=== PATIENT | female | born 1945 | race Caucasian/White ===

== ENCOUNTER 2016-03-02 12:24 | Day surgery (SDC) | payer MEDICARE ==
[~2016-03-02 12:24] MED LIST: ACETAMINOPHEN 325 MG TABLET PO PRN; ACETYLCHOLINE CHLORIDE 20 DROP KIT IO PRN; BUPIVACAINE HCL/PF 30 ML VIAL IJ PRN; CYCLOPENTOLATE HCL 20 DROP BTL LEFTEYE PRN; DEXTROSE 5%-0.5 NORMAL SALINE 1,000 ML IV PRN; EPINEPHrine 1 MG/ML AMPUL IO PRN; HYALURONATE SODIUM 0.4 ML DISP.SYRIN IO PRN; HYALURONATE SODIUM 0.85 ML DISP.SYRIN IO PRN; LIDOCAINE HCL/PF 200 MG/5 ML AMPUL TP PRN; LIDOCAINE HCL/PF 5 ML VIAL IO PRN; NORMAL SALINE 3 ML BOX IV PRN; TETRACAINE HCL 150 DROP BTL OP PRN
[2016-03-02] MEDS: PHENYLEPHRINE HCL 50 DROP BTL LEFTEYE PRN ×3 (12:45→13:15)
[2016-03-02] MEDS: TROPICAMIDE 150 DROP BTL LEFTEYE PRN ×3 (12:45→13:15)
[2016-03-02 15:15] VITALS: BP 128/72
== END 2016-03-02 12:25 | disposition home or self-care (01) ==
LOC: AMB 12:24
PROVIDERS: ATTEND Ophthalmology
PROC: 08RK3JZ Replacement of Left Lens with Synthetic Substitute, Percutaneous Approach (ICD-10-PCS; principal; 2016-03-02 13:20)
DX: H26.9 Unspecified cataract (principal); Z68.26 Body mass index [BMI] 26.0-26.9, adult

== ENCOUNTER 2016-03-16 09:38 | Day surgery (SDC) | payer MEDICARE ==
[~2016-03-16 09:38] MED LIST changes: -CYCLOPENTOLATE HCL 20 DROP BTL LEFTEYE PRN; +CYCLOPENTOLATE HCL 20 DROP BTL RIGHTEYE PRN
[2016-03-16] MEDS: TROPICAMIDE 150 DROP BTL RIGHTEYE PRN ×3 (09:57→10:28)
[2016-03-16] MEDS: PHENYLEPHRINE HCL 50 DROP BTL RIGHTEYE PRN ×3 (09:57→10:28)
[2016-03-16] MEDS ORDERED: DEXTROSE 5%-0.5 NORMAL SALINE 1,000 ML IV ONE (10:38)
[2016-03-16 12:26] VITALS: BP 95/56
== END 2016-03-16 09:39 | disposition home or self-care (01) ==
LOC: AMB 09:38
PROVIDERS: ATTEND Ophthalmology
PROC: 08RJ3JZ Replacement of Right Lens with Synthetic Substitute, Percutaneous Approach (ICD-10-PCS; principal; 2016-03-16 10:40)
DX: H26.9 Unspecified cataract (principal); I10 Essential (primary) hypertension; E78.5 Hyperlipidemia, unspecified; I25.10 Atherosclerotic heart disease of native coronary artery without angina pectoris; F17.210 Nicotine dependence, cigarettes, uncomplicated; Z68.23 Body mass index [BMI] 23.0-23.9, adult

== ENCOUNTER 2017-04-25 14:50 | Inpatient (IN) | payer MEDICARE ==
[2017-04-25] MEDS ORDERED: NORMAL SALINE 1,000 ML IV ONE (15:08)
--- NOTE | 2017-04-25 15:16 | ERNOTE ---
Time Seen by Provider: 04/25/17 14:52 Stated Complaint: URI Presenting Symptoms:: cough Source: patient Exam Limitations: no limitations Immunizations: IMMUNIZATION HX Immunizations Up to Date Yes History of Influenza Vaccine No Hx Pneumococcal Vaccination No Allergies/Adverse Reactions: Allergies No Known Allergies Allergy (Verified 04/25/17 14:59) Home Medications: HOME MEDICATIONS Cyanocobalamin (Vitamin B-12) [B-12 Kit] 1,000 mcg IJ Q30D 02/28/16 [Last Taken 03/01/16] Lisinopril [Zestril] 20 mg PO DAILY 02/28/16 [Last Taken 03/16/16 08:00] Metoprolol Tartrate [Lopressor] 25 mg PO DAILY 02/28/16 [Last Taken 03/16/16 08: 00] Zolpidem Tartrate [Ambien] 10 mg PO HS 02/28/16 [Last Taken 03/01/16] busPIRone HCL [Buspar] 5 mg PO BID 02/28/16 [Last Taken 03/01/16] Aspirin 325 mg PO DAILY 03/02/16 [Last Taken 03/01/16] Diphenoxylate HCl/Atropine [Lomotil Tablet] 1 each PO QID #30 tablet 04/22/17 [ Last Taken Unknown] Doxycycline Hyclate [Vibratab] 100 mg PO BID #20 tab 04/22/17 [Last Taken Unknown] - History of Present Ilness Narrative: Patient states that she has been sick for 4-5days, cough, also vomiting and diarrhea. She denies any chest pain or abdominal pain. She was seen in the ER three days ago, diagnosed with influenza, started on doxycycline. She is not feeling any better, feels very weak, has not eaten much food, drinking soda, no water Timing: getting worse Review of Systems - Review of Systems Constitutional: Present: weakness, malaise. Absent: fever, chills EYE: Absent: double vision ENT: Absent: ear pain, nose congestion, sore throat Respiratory: Present: shortness of breath - with exertion, cough Cardiology: Absent: chest pain Gastrointestinal/Abdominal: Present: nausea, vomiting, diarrhea. Absent: abdominal pain Genitourinary: Present: no symptoms reported. Absent: frequency, dysuria Musculoskeletal: Absent: back pain Skin: Absent: rash Neurological: Absent: weakness, numbness - Patient's Past Medical History Patient History - Medical: Anemia, Cataracts Patient History - Cardiac/Respiratory: Hypertension, Hyperlipidemia Patient History - Cancer: No Hx of Cancer Patient History - Surgical Procedures: Cataracts, Cholecystectomy, Colon Resection - for obstruction, Cardiac stent, Hysterectomy, Other Patient History - Other: None - Family History Father Family History - Medical: , No pertinent hx Family History - Cardiac/Respiratory: No pertinent hx Family History - Cancer: Throat Mother Family History - Medical: , No pertinent hx Family History - Cardiac/Respiratory: CVA/Stroke Family History - Cancer: No pertinent family hx - Social History Living Situations: home Abuse History: No History of abuse Psych History: No pertinent hx Alcohol Use: none Drug Use: none - Immunizations Immunizations Up to Date: Yes Hx Pneumococcal Vaccination: No History of Influenza Vaccine: No Physical Exam - Physical Exam General Appearance: Present: wd/wn, alert, no apparent distress Head Exam: Present: normal inspection Eye Exam: Normal inspection: bilateral Ears, Nose, Throat: Present: normal ENT inspection, normal pharynx, dry mucous membranes Respiratory: Present: no respiratory distress, normal breath sounds, lungs clear Cardiovascular/Chest: Present: regular rate, rhythm, no murmur Gastrointestinal/Abdominal: Present: normal bowel sounds, nontender, nondistended, soft Extremity Exam: Present: no edema Neurological Exam: Present: alert, oriented, normal mood/affect Skin Exam: Present: normal color, warm/dry ED Progress - Results and Orders Patient's Lab Results:: I have reviewed the patient's lab results. - Vital Signs Patient's Vital Signs:: I have reviewed the patient's vital signs. Vital Signs: Vital Signs 04/25/17 14:50 Temperature 35.4 C L Pulse Rate 96 Respiratory 12 Rate Blood Pressure 86/44 O2 Sat by Pulse 97 Oximetry - X-Ray X-Ray #1 X-Ray: chest - possible left sided infiltrate Interpretation: Reviewed by me X-Ray #2 X-Ray: abdomen - non obstructive bowl gas pattern, possible air in bile sytem Interpretation: Discd w/ radiologist - Progress/Reassessment Chief Complaint: Upper Respiratory Symptoms Progress Note-Subjective: 04/25/17 16:15 discussed Xray with radiologist, if patient had ERCP or other biliary procedure air would be normal 04/25/17 16:40 discussed Xray results with patient and family, patient had cholecystectomy, later had 'liver stones' and had ERCP 04/25/17 16:47 discussed with yi Ponce to admit for pneumonia, dehydration and acute renal failure 04/25/17 16:56 patient has PSI or 110 (class IV) qualifying for inpatient care Departure Clinical Impression: Dehydration Pneumonia Qualifiers: Pneumonia type: due to unspecified organism Laterality: left Lung location: lower lobe of lung Qualified Code(s): J18.1 - Lobar pneumonia, unspecified organism Acute renal failure Qualifiers: Acute renal failure type: unspecified Qualified Code(s): N17.9 - Acute kidney failure, unspecified - Departure Disposition: Still a patient Condition: Stable
[2017-04-25 15:22] LABS: Hematocrit 38.5 % (37.0-47.0); Hemoglobin 13.4 gm/dL (12.5-16.0); Mean Cell Volume 88.7 fl (78-100); Mean Corpuscular Hemoglobin 30.9 pg (27-31); Mean Corpuscular Hgb Conc 34.8 g/dl (32-36); Mean Platelet Volume 9.2 fl (6.0-9.5); Neutrophil # 10.4 K/mm3 (1.3-6.0); Neutrophil % 79.8 % (42-75.0); Platelet Count 391 K/mm3 (150-450); Red Blood Count 4.34 M/mm3 (4.2-5.4); Red Cell Distribution Width 13.7 % (11.5-14.0)
[2017-04-25 15:43] LABS: Albumin * 3.5 gm/dl (3.4-5.0); Anion Gap 26.9 mmol/L (6.8-13.8); BUN/Creatinine Ratio 15.5 (9.0-21.6); Bilirubin, Total 0.3 mg/dL (0.0-1.1); Ca. Corrected For Albumin 9.2 mg/dL (8.4-10.2); Calcium * 9.1 mg/dL (7.9-10.9); Carbon Dioxide 10.7 mmol/L (24-32.6); Potassium 4.6 mmol/L (3.4-4.6); Total Protein 8.9 gm/dL (6.2-8.2)
[2017-04-25] MEDS ORDERED: NORMAL SALINE 1,000 ML IV PRN (15:44)
[2017-04-25 16:11] LABS: Urine Appearance Slightly Cloudy (CLEAR); Urine Bilirubin Negative (NEGATIVE); Urine Blood Negative /ul (NEGATIVE); Urine Color Yellow; Urine Ketone Negative (NEGATIVE)
[2017-04-25 16:12] LABS: Urine Bacteria 1+; Urine Nitrite Negative (NEGATIVE); Urine Protein 15 mg/dL (NEGATIVE); Urine Urobilinogen Normal (NORMAL); Urine WBC 0-5 /hpf (0-5); Urine pH 5.5 pH (5.0-7.0)
[2017-04-25 16:13] LABS: Urine RBC None Seen /hpf (0-5); Urine Sperm Moderate - 2+
[2017-04-25] MEDS ORDERED: AZITHROMYCIN 250 MG TABLET PO STA (17:09)
[2017-04-25] MEDS ORDERED: ACETAMINOPHEN 325 MG TABLET PO PRN (17:09)
[2017-04-25] MEDS ORDERED: AZITHROMYCIN 250 MG TABLET ONE (17:23)
--- NOTE | 2017-04-25 17:38 | HP ---
Chief Complaint - Chief Complaint Date of Service: 04/25/17 Time of Service: 17:15 Chief Complaint: Weakness, dry mouth, oliguria, History of Present Illness: Asad has become progressively weaker over the past several days. Not been urinating very much at all. Her mouth is very dry. She is lightheaded and weak and can't walk very far. - Patient's Past Medical History Patient History - Medical: Anemia, Cataracts Patient History - Cardiac/Respiratory: Hypertension, Hyperlipidemia Patient History - Cancer: No Hx of Cancer Patient History - Surgical Procedures: Cataracts, Cholecystectomy, Colon Resection - for obstruction, Cardiac stent, Hysterectomy, Other Patient History - Other: None - Family History Father Family History - Medical: , No pertinent hx Family History - Cardiac/Respiratory: No pertinent hx Family History - Cancer: Throat Mother Family History - Medical: , No pertinent hx Family History - Cardiac/Respiratory: CVA/Stroke Family History - Cancer: No pertinent family hx - Social History Living Situations: home Abuse History: No History of abuse Psych History: No pertinent hx Alcohol Use: none Drug Use: none - Immunizations Immunizations Up to Date: Yes Hx Pneumococcal Vaccination: No History of Influenza Vaccine: No Review Of Systems (GEN) - Review of Systems Generalized/Overall Review: Present: Weakness, Weight loss EENTM: Present: No Symptoms Reported, Other - Very dry mouth Respiratory: Present: Cough, Shortness of Breath Cardiac: Present: Other - History of hypertension Abdominal: Present: No Symptoms Reported Genitourinary: Present: Oliguria Musculoskeletal: Present: Other - Generalized muscle weakness Neurological: Present: Weakness Skin: Present: Dryness, Change in Color Endocrine: Present: No Symptoms Reported Additional Comments: Suri Gaitan is a 72-year-old female patient who is very weak. She is alert oriented and conversant however. She denies being in pain or having any nausea. She is just very weak. She recently underwent ERCP to have some stones removed from her common bile duct or hepatic duct. This procedure seems to have been successful. She has a left subclavian stent in place. Allergies/Adverse Reactions: Allergies Allergy/AdvReac Type Severity Reaction Status Date / Time No Known Allergies Allergy Verified 04/25/17 14:59 Home Medications: HOME MEDICATIONS Cyanocobalamin (Vitamin B-12) [B-12 Kit] 1,000 mcg IJ Q30D 02/28/16 [Last Taken 03/01/16] Lisinopril [Zestril] 20 mg PO DAILY 02/28/16 [Last Taken 03/16/16 08:00] Metoprolol Tartrate [Lopressor] 25 mg PO DAILY 02/28/16 [Last Taken 03/16/16 08: 00] Zolpidem Tartrate [Ambien] 10 mg PO HS 02/28/16 [Last Taken 03/01/16] busPIRone HCL [Buspar] 5 mg PO BID 02/28/16 [Last Taken 03/01/16] Aspirin 325 mg PO DAILY 03/02/16 [Last Taken 03/01/16] Diphenoxylate HCl/Atropine [Lomotil Tablet] 1 each PO QID #30 tablet 04/22/17 [ Last Taken Unknown] Doxycycline Hyclate [Vibratab] 100 mg PO BID #20 tab 04/22/17 [Last Taken Unknown] Exam - Exam Vital Signs: Vital Signs - Last Taken Temp 36.1 C L 04/25/17 16:53 Pulse 91 04/25/17 16:53 Resp 13 04/25/17 16:53 BP 85/42 04/25/17 16:53 Pulse Ox 96 04/25/17 16:53 Constitutional: Present: Alert, Oriented x3, Cooperative, Well developed, Elderly, Thin and frail ENT Exam: Present: normal ENT inspection, hearing grossly normal Eye Exam: bilateral eye: normal inspection, PERRL, EOMI Neck: Present: non-tender, supple, normal inspection, trachea midline Back Exam: Present: normal inspection, no CVA tenderness, no vertebral tenderness Breasts: Present: Exam deferred Respiratory: Present: chest non-tender, rhonchi, wheezing, expiration (prolonged ), No rales Cardiovascular/Chest: Present: normal peripheral pulses, regular rate, rhythm, no chest tenderness, no edema, no gallop, no JVD, no murmur Peripheral Pulses: carotid (R): 2+, carotid (L): 2+, radial (R): 2+, radial (L) : 2+ Abdomen: Present: Normal bowel sounds, soft, nontender, nondistended, no rebound tenderness, no hepatospenomegaly /Rectal: Present: Exam deferred Extremity: Present: normal range of motion, non-tender, normal inspection, no pedal edema, no calf tenderness Skin Exam: Present: cool/dry, pallor Lymphatic: Present: no adenopathy 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 Appearance: Present: appropriate appearance, appropriate insight, neat, no memory impairment Eye contact: Present: cooperative, good eye contact, normal speech Thoughts: Present: normal thought pattern, no apparent hallucination Diagnostic Studies: Laboratory Results WBC 13.0 K/mm3 (4.0-10.5) H 04/25/17 15:10 RBC 4.34 M/mm3 (4.2-5.4) 04/25/17 15:10 Hgb 13.4 gm/dL (12.5-16.0) 04/25/17 15:10 Hct 38.5 % (37.0-47.0) 04/25/17 15:10 MCV 88.7 fl (78-100) 04/25/17 15:10 MCH 30.9 pg (27-31) 04/25/17 15:10 MCHC 34.8 g/dl (32-36) 04/25/17 15:10 RDW 13.7 % (11.5-14.0) 04/25/17 15:10 Plt Count 391 K/mm3 (150-450) 04/25/17 15:10 MPV 9.2 fl (6.0-9.5) 04/25/17 15:10 Immature Gran % (Auto) 2.00 % (0.001-0.429) H 04/25/17 15:10 Immature Gran # (Auto) 0.26 K/mm3 (0.000-0.0310) H 04/25/17 15:10 Neutrophils % 79.8 % (42-75.0) H 04/25/17 15:10 Lymphocytes % 11.7 % (20-51) L 04/25/17 15:10 Monocytes % 5.8 % (0.0-9) 04/25/17 15:10 Eosinophils % 0.2 % (0.0-3.0) 04/25/17 15:10 Basophils % 0.5 % (0.0-1.0) 04/25/17 15:10 Nucleated RBC % 0.0 k/mm3 (0-1) 04/25/17 15:10 Neutrophils # 10.4 K/mm3 (1.3-6.0) H 04/25/17 15:10 Lymphocytes # 1.52 k/mm3 (1.5-3.5) 04/25/17 15:10 Monocytes # 0.8 k/mm3 (0.0-1.0) 04/25/17 15:10 Eosinophils # 0.0 k/mm3 (0.0-0.7) 04/25/17 15:10 Absolute Basophils 0.1 k/mm3 (0.0-0.1) 04/25/17 15:10 Sodium 137 mmol/L (132-142) 04/25/17 15:10 Plasma Sodium 138 mmol/L (130-142) 04/25/17 15:10 Potassium 4.6 mmol/L (3.4-4.6) D 04/25/17 15:10 Chloride 104 mmol/L (97-106) 04/25/17 15:10 Carbon Dioxide 10.7 mmol/L (24-32.6) L 04/25/17 15:10 Anion Gap 26.9 mmol/L (6.8-13.8) H 04/25/17 15:10 BUN 113 mg/dL (3-23) H D 04/25/17 15:10 Creatinine 7.27 mg/dL (0.4-1.4) H D 04/25/17 15:10 Est GFR (Non-Af Amer) 6 mL/min (60-130) L D 04/25/17 15:10 BUN/Creatinine Ratio 15.5 (9.0-21.6) 04/25/17 15:10 Random Glucose 133 mg/dL (70-110) H 04/25/17 15:10 Lactic Acid, Venous 2.0 mmol/L (0.4-1.9) H 04/25/17 15:10 Calcium 9.1 mg/dL (7.9-10.9) 04/25/17 15:10 Calcium Adj for Albumin 9.2 mg/dL (8.4-10.2) 04/25/17 15:10 Total Bilirubin 0.3 mg/dL (0.0-1.1) 04/25/17 15:10 AST 13 U/L (0-48) 04/25/17 15:10 ALT 15 U/L (19-67) L 04/25/17 15:10 Alkaline Phosphatase 105 U/L (50-170) 04/25/17 15:10 Total Protein 8.9 gm/dL (6.2-8.2) H 04/25/17 15:10 Albumin 3.5 gm/dl (3.4-5.0) 04/25/17 15:10 Urine Color Yellow 04/25/17 15:44 Urine Appearance Slightly cloudy (CLEAR) 04/25/17 15:44 Urine pH 5.5 pH (5.0-7.0) 04/25/17 15:44 Ur Specific [place] 1.030 SP.GR. (1.005-1.010) 04/25/17 15:44 Urine Protein 15 mg/dL (NEGATIVE) H 04/25/17 15:44 Urine Glucose (UA) Negative mg/dL (NEGATIVE) 04/25/17 15:44 Urine Ketones Negative mg/dL (NEGATIVE) 04/25/17 15:44 Urine Blood Negative /ul (NEGATIVE) 04/25/17 15:44 Urine Nitrate Negative (NEGATIVE) 04/25/17 15:44 Urine Bilirubin Negative mg/dl (NEGATIVE) 04/25/17 15:44 Prot Sulfosalicylic Acd 1+ mg/dL (0) 04/25/17 15:44 Urine Urobilinogen Normal EU/dl (NORMAL) 04/25/17 15:44 Ur Leukocyte Esterase Negative /ul (NEGATIVE) 04/25/17 15:44 Urine RBC None seen /hpf (0-5) 04/25/17 15:44 Urine WBC 0-5 /hpf (0-5) 04/25/17 15:44 Ur Epithelial Cells 5-10 /hpf (0-5) H 04/25/17 15:44 Urine Bacteria 1+ (NONE) H 04/25/17 15:44 Urine Sperm Moderate - 2+ (NONE) H 04/25/17 15:44 Urine Culture Comments No culture indicated 04/25/17 15:44 Assessment/Plan - Narrative Narrative: IV fluids using normal saline will be administered at a bolus rate until the 1680 mL for the sepsis protocol is administered. The rate will be decreased to 125 mL per hour. I'll monitor her renal status at least daily and perhaps twice a day at times until she is rehydrated. I would estimate that she is 4-6 L of fluid behind. I will hold her medications including her blood pressure medicines of aspirin. She may have some acetaminophen if needed and I'll her sleeping pill and her anxiety medication as they are metabolized through the liver. I anticipate her kidneys will recover significantly although may not too normal range. - Assessment/Plan (1) Acute renal failure Problem: Acute Qualifiers: Acute renal failure type: unspecified Qualified Code(s): N17.9 - Acute kidney failure, unspecified (2) Dehydration Problem: Acute (3) Hypotension Problem: Acute Qualifiers: Hypotension type: other hypotension type Qualified Code(s): I95.89 - Other hypotension (4) Pneumonia Problem: Acute Qualifiers: Pneumonia type: due to unspecified organism Laterality: left Lung location: lower lobe of lung Qualified Code(s): J18.1 - Lobar pneumonia, unspecified organism
[2017-04-25] MEDS: NORMAL SALINE 1,000 ML IV PRN (18:57)
[2017-04-25] MEDS: ZOLPIDEM TARTRATE 10 MG TABLET PO SCH (21:51)
[2017-04-25] MEDS: busPIRone HCL 5 MG TABLET PO SCH (21:51)
[2017-04-26] MEDS: NORMAL SALINE 1,000 ML IV PRN ×3 (03:19→21:53)
[2017-04-26 05:27] LABS: Hematocrit 32.6 % (37.0-47.0); Hemoglobin 11.2 gm/dL (12.5-16.0); Mean Cell Volume 89.1 fl (78-100); Mean Corpuscular Hemoglobin 30.6 pg (27-31); Mean Corpuscular Hgb Conc 34.4 g/dl (32-36); Neutrophil # 7.1 K/mm3 (1.3-6.0); Neutrophil % 76.4 % (42-75.0); Platelet Count 313 K/mm3 (150-450); Red Blood Count 3.66 M/mm3 (4.2-5.4); Red Cell Distribution Width 13.6 % (11.5-14.0); White Blood Count 9.2 K/mm3 (4.0-10.5)
[2017-04-26 05:37] LABS: Anion Gap 21.6 mmol/L (6.8-13.8); BUN/Creatinine Ratio 21.9 (9.0-21.6); Calcium * 8.3 mg/dL (7.9-10.9); Carbon Dioxide 10.9 mmol/L (24-32.6); Estimated Creat Clear 11.6; Potassium 4.5 mmol/L (3.4-4.6)
[2017-04-26] MEDS: ENOXAPARIN SODIUM 30 MG/0.3 ML SYRG SC SCH (09:46)
[2017-04-26] MEDS: AZITHROMYCIN 250 MG TABLET PO SCH (09:46)
[2017-04-26] MEDS: busPIRone HCL 5 MG TABLET PO SCH ×2 (09:46→23:30)
[2017-04-26] MEDS: cefTRIAXone SODIUM 1,000 MG in DEXTROSE 5 % IN WATER 50 ML IV SCH ×2 (16:50)
[2017-04-26] MEDS ORDERED: OLANZapine 5 MG TABLET PO STA (16:53)
[2017-04-26] MEDS ORDERED: HALOPERIDOL LACTATE 5 MG/ML VIAL IM PRN (18:08)
[2017-04-26] MEDS ORDERED: LORazepam 2 MG/ML DISP.SYRIN IV ONE (18:09)
[2017-04-26] MEDS ORDERED: LORazepam 2 MG/ML DISP.SYRIN ONE (19:17)
[2017-04-27 05:08] LABS: Anion Gap 19.3 mmol/L (6.8-13.8); BUN/Creatinine Ratio 26.7 (9.0-21.6); Calcium * 8.1 mg/dL (7.9-10.9); Carbon Dioxide 12.1 mmol/L (24-32.6); Estimated Creat Clear 19.1; Potassium 4.4 mmol/L (3.4-4.6)
[2017-04-27] MEDS: NORMAL SALINE 1,000 ML IV PRN (06:42)
--- NOTE | 2017-04-27 09:01 | PN ---
Subjective - Date and Time Seen Date: 04/26/17 Time: 08:00 Objective - Review of Systems Generalized/Overall Review: Reports: No Symptoms Reported, Weakness, Weight loss EENTM: Reports: No Symptoms Reported Respiratory: Reports: No Symptoms Reported Cardiac: Reports: No Symptoms Reported Abdominal: Reports: No Symptoms Reported Genitourinary Symptoms: Reports: No Symptoms Reported Musculoskeletal Complaints: Reports: No Symptoms Reported Neurological: Reports: No Symptoms Reported Skin: Reports: No Symptoms Reported Endocrine: Reports: No Symptoms Reported - Vitals Vitals: Last Vital Signs Temp 36.8 C 04/27/17 07:32 Pulse 95 04/27/17 07:32 Resp 16 04/27/17 07:32 BP 102/60 04/27/17 07:32 Pulse Ox 97 04/27/17 07:32 - Abnormal Lab Findings Abnormal Lab Findings: Abnormal Lab Results 04/27/17 Range/Units 04:53 Sodium 149 H (132-142) mmol/L Plasma Sodium 149 H (130-142) mmol/L Chloride 122 H (97-106) mmol/L Carbon Dioxide 12.1 L (24-32.6) mmol/L Anion Gap 19.3 H (6.8-13.8) mmol/L BUN 74 H (3-23) mg/dL Creatinine 2.77 H D (0.4-1.4) mg/dL Est GFR (Non-Af Amer) 18 L D (60-130) mL/min BUN/Creatinine Ratio 26.7 H (9.0-21.6) - Exam Exam Narrative: Interval improvement in her lab work shows a decrease of her creatinine down to 4 and her EGFR is up to 12. She seems to be tolerating rehydration well and no signs or symptoms of failure. 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 Recheck BUN/creatinine tomorrow morning. - Problems/Diagnosis (1) Acute renal failure Problem: Acute Qualifiers: Acute renal failure type: unspecified Qualified Code(s): N17.9 - Acute kidney failure, unspecified (2) Dehydration Problem: Acute (3) Hypotension Problem: Acute Qualifiers: Hypotension type: other hypotension type Qualified Code(s): I95.89 - Other hypotension (4) Pneumonia Problem: Acute Qualifiers: Pneumonia type: due to unspecified organism Laterality: left Lung location: lower lobe of lung Qualified Code(s): J18.1 - Lobar pneumonia, unspecified organism
--- NOTE | 2017-04-27 09:05 | PN ---
Guilherme Note - Interim Date: 04/26/17 Time: 19:15 Narrative: 04/27/17 09:02 Mrs. Gaitan has had an acute psychotic break this evening and become very confused and difficult to manage. She is disoriented to time date and place. She thinks some of the staff or relatives. She thinks her husbands put her in [facility]. She is cussing at staff. This is most likely just acute hospital psychosis. I gave her Zyprexa 5 mg by mouth about 2 hours ago at around 5:30 which had no benefit by 6:30 and so she was given Haldol 30 mg IM and 1 mg of lorazepam IV push. She is now calm and sitting in a chair and doesn't seem to be as confused and belligerent at this time. We will repeat a dose through the night as necessary
--- NOTE | 2017-04-27 09:15 | PN ---
Subjective - Date and Time Seen Date: 04/27/17 Time: 08:15 Subjective Narrative: Mrs. Gaitan is very quiet this morning. She looks sedated. She is in no distress at the time of my exam. She answers some questions appropriately. I reviewed her morning lab with her just stating that the patient improved and she did not acknowledge. There are no other new problems have arisen. Objective Objective Narrative: Vital signs have remained stable. Her pain is down to 2.8 this morning and EGFR is now up to 18. We do not know what her baseline is. She is not coughing does not seem to be any respiratory distress. There is concern for pneumonia on admission. Repeat chest x-ray will be done tomorrow prior to discharge. Sodium was up to 149 today so I will decrease her IV fluid to half normal saline. - Review of Systems Generalized/Overall Review: Reports: Weakness, Weight loss EENTM: Reports: No Symptoms Reported Respiratory: Reports: No Symptoms Reported Cardiac: Reports: No Symptoms Reported Abdominal: Reports: No Symptoms Reported Genitourinary Symptoms: Reports: No Symptoms Reported Musculoskeletal Complaints: Reports: No Symptoms Reported Neurological: Reports: No Symptoms Reported Skin: Reports: No Symptoms Reported Endocrine: Reports: No Symptoms Reported - Vitals Vitals: Last Vital Signs Temp 36.8 C 04/27/17 07:32 Pulse 95 04/27/17 07:32 Resp 16 04/27/17 07:32 BP 102/60 04/27/17 07:32 Pulse Ox 97 04/27/17 07:32 - Abnormal Lab Findings Abnormal Lab Findings: Abnormal Lab Results 04/27/17 Range/Units 04:53 Sodium 149 H (132-142) mmol/L Plasma Sodium 149 H (130-142) mmol/L Chloride 122 H (97-106) mmol/L Carbon Dioxide 12.1 L (24-32.6) mmol/L Anion Gap 19.3 H (6.8-13.8) mmol/L BUN 74 H (3-23) mg/dL Creatinine 2.77 H D (0.4-1.4) mg/dL Est GFR (Non-Af Amer) 18 L D (60-130) mL/min BUN/Creatinine Ratio 26.7 H (9.0-21.6) - Exam Constitutional: Present: No distress, Lethargic, Somnolent, Elderly, Thin and frail ENT Exam: Present: normal ENT inspection, hearing grossly normal, pharynx normal Neck: Present: non-tender, supple, limited range of motion Breasts: Present: Exam deferred Respiratory: Present: chest non-tender, lungs clear, normal breath sounds, no respiratory distress, no accessory muscle use Cardiovascular/Chest: Present: normal peripheral pulses, regular rate, rhythm, no chest tenderness Abdomen: Present: Normal bowel sounds /Rectal: Present: Exam deferred Extremity: Present: normal range of motion, non-tender, normal inspection, no pedal edema, no calf tenderness Skin Exam: Present: normal color, warm/dry, no cyanosis, cool/dry, diaphoresis Lymphatic: Present: no adenopathy Neurologic: Present: nurse rn bsn II-XII nml as tested Appearance: Present: appropriate appearance Eye contact: Present: cooperative Thoughts: Present: normal thought pattern, auditory hallucinations, delusions, incoherent, paranoid, persecution, visual hallucinations. Absent: normal mood / affect Assessment/Plan Plan Narrative: Change IV fluid to half normal saline at 100 mL per hour 2. Eat BMP tomorrow morning 3. Chest x-ray tomorrow morning 4. Continue antipsychotic and angiolytic medicine as required. - Problems/Diagnosis (1) Acute renal failure Problem: Acute Qualifiers: Acute renal failure type: unspecified Qualified Code(s): N17.9 - Acute kidney failure, unspecified (2) Dehydration Problem: Acute (3) Acute psychosis Problem: Acute (4) Hypernatremia Problem: Acute (5) Hypotension Problem: Acute Qualifiers: Hypotension type: other hypotension type Qualified Code(s): I95.89 - Other hypotension (6) Pneumonia Problem: Acute Qualifiers: Pneumonia type: due to unspecified organism Laterality: left Lung location: lower lobe of lung Qualified Code(s): J18.1 - Lobar pneumonia, unspecified organism
[2017-04-27] MEDS: AZITHROMYCIN 250 MG TABLET PO SCH (09:20)
[2017-04-27] MEDS: ENOXAPARIN SODIUM 30 MG/0.3 ML SYRG SC SCH (09:20)
[2017-04-27] MEDS: busPIRone HCL 5 MG TABLET PO SCH ×2 (09:20→23:00)
[2017-04-27] MEDS: ZOLPIDEM TARTRATE 10 MG TABLET PO SCH (09:51)
[2017-04-27] MEDS: 0.5 NORMAL SALINE 1,000 ML IV PRN ×2 (10:08→22:42)
[2017-04-27] MEDS: LORazepam 2 MG/ML DISP.SYRIN IV PRN (13:00)
[2017-04-27] MEDS: OLANZapine 5 MG TABLET PO SCH (15:52)
[2017-04-27] MEDS: cefTRIAXone SODIUM 1,000 MG in DEXTROSE 5 % IN WATER 50 ML IV SCH ×2 (15:55)
[2017-04-28] MEDS: LORazepam 2 MG/ML DISP.SYRIN IV PRN ×2 (00:59→21:13)
[2017-04-28 06:04] LABS: Anion Gap 20.4 mmol/L (6.8-13.8); BUN/Creatinine Ratio 24.8 (9.0-21.6); Calcium * 8.2 mg/dL (7.9-10.9); Carbon Dioxide 11.4 mmol/L (24-32.6); Estimated Creat Clear 25.6; Potassium 3.8 mmol/L (3.4-4.6)
[2017-04-28] MEDS: OLANZapine 5 MG TABLET PO SCH (09:00)
[2017-04-28] MEDS: busPIRone HCL 5 MG TABLET PO SCH ×2 (09:00→21:12)
[2017-04-28] MEDS: AZITHROMYCIN 250 MG TABLET PO SCH (09:00)
[2017-04-28] MEDS: ENOXAPARIN SODIUM 30 MG/0.3 ML SYRG SC SCH (09:01)
[2017-04-28] MEDS: 0.5 NORMAL SALINE 1,000 ML IV PRN (11:41)
[2017-04-28] MEDS ORDERED: POTASSIUM CHLORIDE 40 MEQ in DEXTROSE 5%-NORMAL SALINE 980 ML IV SCH (15:00)
[2017-04-28] MEDS ORDERED: POTASSIUM CHLORIDE 20 MEQ TABLET.SA PO ONE (15:00)
--- NOTE | 2017-04-28 15:26 | PN ---
Subjective - Date and Time Seen Date: 04/28/17 Time: 15:11 Subjective Narrative: patient confused, cannot recollect the reason she is in the hospital, poor appetite. Objective - Review of Systems Generalized/Overall Review: Denies: Weakness - poor appetite - Vitals Vitals: Vital Signs Temp 36.2 C L 04/28/17 10:23 Pulse 79 04/28/17 14:22 Resp 18 04/28/17 10:23 BP 122/69 04/28/17 10:23 Pulse Ox 98 04/28/17 10:23 - Abnormal Lab Findings Abnormal Lab Findings: Laboratory Tests 04/28/17 05:49 Plasma Sodium 146 H Potassium 3.8 Chloride 118 H Carbon Dioxide 11.4 L BUN 51 H Creatinine 2.06 H D Est GFR (Non-Af Amer) 25 L D Random Glucose 79 Calcium 8.2 - Exam Constitutional: Present: Elderly, Thin and frail - alert and not oriented, in NAD. ENT Exam: Present: hearing grossly normal, dry mucous membranes Respiratory: Present: no accessory muscle use, decreased breath sounds - at left base. Cardiovascular/Chest: Present: regular rate, rhythm. Absent: tachycardia Abdomen: Present: Normal bowel sounds, soft, nontender Extremity: Present: normal inspection, no pedal edema Skin Exam: Present: warm/dry, pallor Assessment/Plan Plan Narrative: 1. ACUTE ON CHRONIC KIDNEY DISEASE STAGE III. Patient BUN/creatinine had worsened from 14/1.69 GFR 32ml/min [02/20/17] to 113/ 7.27 GFR 6 ml/ min[ 04/25/17]. This is gradually improving with hydration. 2. HYPERNATREMIA DUE TO DEHYDRATION: D/C normal saline. Switch to D5W at 125 mL an hour. Check CMP in a.m. 3. METABOLIC ACIDOSIS: Start sodium bicarbonate PO 650 mg 4 times a day. 4. POOR ORAL INTAKE: Patient has a low BMI of 18.8. Start mirtazapine 7.5 mg by mouth at bedtime.
[2017-04-28] MEDS: cefTRIAXone SODIUM 1,000 MG in DEXTROSE 5 % IN WATER 50 ML IV SCH ×2 (15:57)
[2017-04-28] MEDS: DEXTROSE 5 % IN WATER 1,000 ML IV PRN (15:58)
[2017-04-28] MEDS: MIRTAZAPINE 15 MG TABLET PO SCH (19:10)
[2017-04-28] MEDS ORDERED: SODIUM BICARBONATE 650 MG TABLET PO ONE (20:00)
[2017-04-29] MEDS: DEXTROSE 5 % IN WATER 1,000 ML IV PRN (00:37)
[2017-04-29 06:01] LABS: Hematocrit 35.8 % (37.0-47.0); Hemoglobin 12.6 gm/dL (12.5-16.0); Mean Cell Volume 87.3 fl (78-100); Mean Corpuscular Hemoglobin 30.7 pg (27-31); Mean Corpuscular Hgb Conc 35.2 g/dl (32-36); Mean Platelet Volume 9.2 fl (6.0-9.5); Neutrophil # 8.2 K/mm3 (1.3-6.0); Neutrophil % 75.5 % (42-75.0); Platelet Count 277 K/mm3 (150-450); Red Cell Distribution Width 13.6 % (11.5-14.0); White Blood Count 10.9 K/mm3 (4.0-10.5)
[2017-04-29 06:32] LABS: Albumin * 2.8 gm/dl (3.4-5.0); Anion Gap 18.6 mmol/L (6.8-13.8); BUN/Creatinine Ratio 19.8 (9.0-21.6); Bilirubin, Total 0.4 mg/dL (0.0-1.1); Ca. Corrected For Albumin 8.8 mg/dL (8.4-10.2); Calcium * 8.2 mg/dL (7.9-10.9); Carbon Dioxide 10.8 mmol/L (24-32.6); Potassium 4.4 mmol/L (3.4-4.6); Total Protein 7.3 gm/dL (6.2-8.2)
[2017-04-29] MEDS: ENOXAPARIN SODIUM 30 MG/0.3 ML SYRG SC SCH (08:58)
[2017-04-29] MEDS: busPIRone HCL 5 MG TABLET PO SCH ×2 (08:59→21:32)
[2017-04-29] MEDS: AZITHROMYCIN 250 MG TABLET PO SCH (08:59)
[2017-04-29] MEDS: OLANZapine 5 MG TABLET PO SCH (08:59)
[2017-04-29] MEDS: SODIUM BICARBONATE 650 MG TABLET PO SCH ×5 (09:05→21:32)
[2017-04-29] MEDS ORDERED: NORMAL SALINE 500 ML IV ONE (12:10)
--- NOTE | 2017-04-29 12:33 | PN ---
Subjective - Date and Time Seen Date: 04/29/17 Time: 12:24 Subjective Narrative: Pt. had rapid response called. states that lunch had just arrived and she was looking at lunch tray and then her eyes rolled back and she went out. Nursing reports that she was leaning to the left. Stat CT of head was ordered. I assessed her in CT and she was able to respond to verbal questions. Manager Behavior and foot plantar flexion and dorsiflexion were 5/5 and equal jori. Speech was soft, but understandable. Head was tilted to left, but no facial droop on left. Earlier I spoke with who stated she has not been eating well and that he is concerned about her nutritional state and her confused state. She normally isn't confused per him and doesn't have a tremor, which she now has. Pt. can tell me that she's in [facility], but states year as 2011. Objective - Review of Systems Generalized/Overall Review: Reports: Weakness, Malaise. Denies: Chills, Fever EENTM: Reports: No Symptoms Reported Respiratory: Reports: No Symptoms Reported Cardiac: Reports: No Symptoms Reported Abdominal: Reports: Other - early satiety. Denies: Abdominal Pain, Diarrhea Genitourinary Symptoms: Reports: No Symptoms Reported Musculoskeletal Complaints: Reports: No Symptoms Reported Neurological: Reports: Anxiety, Tremors, Weakness, Other - hallucinations and wanting to leave the facility, by report Skin: Reports: No Symptoms Reported Endocrine: Reports: No Symptoms Reported - Vitals Vitals: Last Vital Signs Temp 36.3 C L 04/29/17 10:45 Pulse 89 04/29/17 11:37 Resp 18 04/29/17 10:45 BP 105/64 04/29/17 10:45 Pulse Ox 94 04/29/17 10:45 - Abnormal Lab Findings Abnormal Lab Findings: Abnormal Lab Results 04/29/17 04/29/17 Range/Units 05:57 05:57 WBC 10.9 H (4.0-10.5) K/mm3 RBC 4.10 L (4.2-5.4) M/mm3 Hct 35.8 L (37.0-47.0) % Immature Gran % (Auto) 1.10 H (0.001-0.429) % Immature Gran # (Auto) 0.12 H (0.000-0.0310) K/mm3 Neutrophils % 75.5 H (42-75.0) % Lymphocytes % 14.8 L (20-51) % Neutrophils # 8.2 H (1.3-6.0) K/mm3 Chloride 112 H (97-106) mmol/L Carbon Dioxide 10.8 L (24-32.6) mmol/L Anion Gap 18.6 H (6.8-13.8) mmol/L BUN 33 H (3-23) mg/dL Creatinine 1.67 H (0.4-1.4) mg/dL Est GFR (Non-Af Amer) 32 L D (60-130) mL/min ALT 12 L (19-67) U/L Albumin 2.8 L (3.4-5.0) gm/dl - Exam Constitutional: Present: Alert, Cooperative, Lethargic, Elderly, Thin and frail , Looks Older than stated age ENT Exam: Present: hearing grossly normal Neck: Present: supple Respiratory: Present: lungs clear, normal breath sounds, no respiratory distress , no accessory muscle use Cardiovascular/Chest: Present: regular rate, rhythm, no murmur Abdomen: Present: Normal bowel sounds, soft, nondistended, tender - LLQ, but no masses palpated and only slight guarding Extremity: Present: no pedal edema, no calf tenderness, other - extensive bruising of left UE and a few bruises on right and right neck. Neurologic: Present: no motor/sensory deficits, alert Appearance: Present: impaired insight, impaired recent memory Eye contact: Present: good eye contact, decreased rate of speech Thoughts: Present: no apparent hallucination Assessment/Plan - Problems/Diagnosis (1) Acute psychosis Problem: Acute Narrative: unsure the etiology, except probably prolonged hospital stay, not sleeping and not on her typical ambien 10mg hs. zyprexa and ativan were given without much benefit. (2) Acute renal failure Problem: Acute Qualifiers: Acute renal failure type: unspecified Qualified Code(s): N17.9 - Acute kidney failure, unspecified Narrative: pt. is back to her pre-hospital baseline. (3) Dehydration Problem: Acute Narrative: pt. has been successfully rehydrated with her Cr back to baseline of 1.67, now 1.73, but was 1.69 prior to her arrival and a Cr of 7.27 on the . (4) Hypernatremia Problem: Acute Narrative: fluids changed from NS to D5 / NS, last sodium this am was 137 (5) Hypotension Problem: Acute Qualifiers: Hypotension type: other hypotension type Qualified Code(s): I95.89 - Other hypotension Narrative: holding lisinopril 20mg and metorpolol 25mg daily and fluids have been running. 500ml bolus just finished due to SPB in the 90's. (6) Syncopal episodes Problem: Acute Qualifiers: Syncope type: unspecified Qualified Code(s): R55 - Syncope and collapse Narrative: originally thought this might be a vasovagal, with no significant EKG changes, but with Trop I coming back at 0.419, concern would be for ACS, non-stemi and would therefore look to transfer to [facility] since they have cardiology there and we don't. No meds given at this time due to pt. is somnolent and not able to take po. BP's are low with SBP into 90's, 500ml NS bolus given and current SBP in the 110's. Head CT was done and was reviewed with radiologist. believe area in brain of interest is more chronic than acute, especially in light of her having movement and good strength in all extremities. (7) Weakness Problem: Acute Narrative: due to poor po intake and illness/dehydration. was planning on PT eval and Tx. (8) Anorexia Problem: Acute Narrative: hasn't really eaten since 04/16/17. (9) Discharge planning issues Problem: Acute Narrative: due to concern for ACS will transfer to [facility]. Her acute issues have been corrected, though her psychosis may remain.
[2017-04-29 12:37] LABS: Albumin * 2.7 gm/dl (3.4-5.0); Anion Gap 19.2 mmol/L (6.8-13.8); BUN/Creatinine Ratio 17.3 (9.0-21.6); Bilirubin, Total 0.4 mg/dL (0.0-1.1); Ca. Corrected For Albumin 8.6 mg/dL (8.4-10.2); Calcium * 7.9 mg/dL (7.9-10.9); Carbon Dioxide 12.7 mmol/L (24-32.6); Potassium 3.9 mmol/L (3.4-4.6)
[2017-04-29 12:40] LABS: Troponin I 0.419 ng/ml (0.00-0.10)
[2017-04-29 14:05] LABS: INR 1.11 INR (0.90-1.10); Partial Thrombolplastin Time 31.4 Seconds (24-32); Prothrombin Time (Patient) 11.1 Seconds (9.0-11.0)
[2017-04-29] MEDS: cefTRIAXone SODIUM 1,000 MG in DEXTROSE 5 % IN WATER 50 ML IV SCH ×2 (15:47)
[2017-04-29] MEDS: LORazepam 2 MG/ML DISP.SYRIN IV PRN (16:25)
[2017-04-29] MEDS: MIRTAZAPINE 15 MG TABLET PO SCH (21:32)
[2017-04-30] MEDS: LORazepam 2 MG/ML DISP.SYRIN IV PRN (04:51)
[2017-04-30 06:17] LABS: Albumin * 3.1 gm/dl (3.4-5.0); Anion Gap 20.2 mmol/L (6.8-13.8); BUN/Creatinine Ratio 16.5 (9.0-21.6); Bilirubin, Total 0.4 mg/dL (0.0-1.1); Ca. Corrected For Albumin 8.9 mg/dL (8.4-10.2); Calcium * 8.5 mg/dL (7.9-10.9); Carbon Dioxide 13.5 mmol/L (24-32.6); Potassium 3.7 mmol/L (3.4-4.6); Total Protein 7.6 gm/dL (6.2-8.2)
--- NOTE | 2017-04-30 06:39 | PN ---
Progess Note - Interim Date: 04/30/17 Time: 06:36 Narrative: 04/30/17 06:36 Pt. easily awakens to voice and is comfortable, calm and much more alert than what she has been. She has no complaints and understands the plan today is to get up and walk with minimal assist and to take PO. If she can accomplish this then she can be discharged home later today. C. diff was ordered but there is no stool results back this am. PE: she's alert, Ox2, speech is strong and clear, no facial assymetry. CTA RRR Soft, NABS 4/5 strength x 4 ext. anticipate discharge home later today if able to ambulate, otherwise would consider NH placement for strengthening.
[2017-04-30] MEDS: SODIUM BICARBONATE 650 MG TABLET PO SCH (08:08)
[2017-04-30] MEDS: busPIRone HCL 5 MG TABLET PO SCH (08:08)
[2017-04-30] MEDS ORDERED: ASPIRIN 325 MG TABLET.DR PO SCH (09:00)
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
[2017-04-30 14:50] VITALS: BP 122/79
[2017-05-07] MEDS ORDERED: CYANOCOBALAMIN 1,000 MCG/ML VIAL IM SCH (09:00)
== END 2017-04-30 15:10 | disposition home health service (06) | DRG 683 ==
LOC: ER 14:50 → MS 17:00
PROVIDERS: ADMIT Family Medicine; ATTEND Family Medicine
DX: N17.9 Acute kidney failure, unspecified (principal); F23 Brief psychotic disorder; E87.0 Hyperosmolality and hypernatremia; Z68.1 Body mass index [BMI] 19.9 or less, adult; E87.2 Acidosis; R63.0 Anorexia; R53.1 Weakness; R45.1 Restlessness and agitation; E86.0 Dehydration; I95.89 Other hypotension; I12.9 Hypertensive chronic kidney disease with stage 1 through stage 4 chronic kidney disease, or unspecified chronic kidney disease; N18.3 Chronic kidney disease, stage 3 (moderate); E78.5 Hyperlipidemia, unspecified; Z95.5 Presence of coronary angioplasty implant and graft; Z79.82 Long term (current) use of aspirin; J40 Bronchitis, not specified as acute or chronic; R19.7 Diarrhea, unspecified; F17.200 Nicotine dependence, unspecified, uncomplicated